=== PATIENT | male | born 1995 | race African-American/Black ===

== ENCOUNTER 2017-06-13 14:50 | Emergency (ER) | payer MEDICARE, MEDICAID ==
[~2017-06-13] VITALS: Ht 182.9 cm; Wt 68.0 kg
[~2017-06-13 14:50] MED LIST: FOLI-43 PO; HYDR500C
[2017-06-13 16:10] VITALS: BP 108/52
== END 2017-06-13 21:42 | disposition left against medical advice (07) ==
LOC: ER 21:40
DX: R51 Headache (principal); Z53.21 Procedure and treatment not carried out due to patient leaving prior to being seen by health care provider